=== PATIENT | male | born 1990 | race African-American/Black ===

== ENCOUNTER 2023-07-20 16:17 | Emergency (ER) | payer SELFPAY ==
[2023-07-20 16:37] VITALS: BP 124/80; PULSE 88; RESP 16; TEMP 36.6; O2SAT 100
--- NOTE | 2023-07-20 17:06 | ED.GENADULT ---
HPI - General Adult General Chief complaint: Psychiatric Symptoms Stated complaint: hallucinations Time Seen by Provider: 07/20/23 16:43 History of Present Illness HPI narrative: 33-year-old male with history of psychiatric disorder and developmental delay presented the emergency department for evaluation of increased hallucinations and decreased p.o. intake. Family states that the patient had been an inmate at [facility] for the last 3 years and was discharged on 06/23. Family states that the patient had been on multiple psychiatric medications but these were not continued when he was discharged. Family is unaware of what medications he had been on. Patient has been having poor sleep, hallucinations and decreased p.o. intake Review of Systems Review of Systems: All systems reviewed & are unremarkable except as noted in HPI and below PMFSH Social History Social History Substance use type: marijuana Exam Narrative: APPEARANCE: Well appearing, no pain, no distress, well-nourished. HEAD: normocephalic, atraumatic. EYES: PERRLA/EOMI, conjunctivae clear. NOSE: Normal no drainage EARS:TMS clear with good light reflex. THROAT: Pharynx clear, no exudate. NECK: Supple. No adenopathy, no masses. RESPIRATORY: Airway patent, respirations nonlabored. Clear to auscultation bilaterally, no rales, rhonchi, wheezing. CARDIOVASCULAR: Regular rate and rhythm without murmurs rubs or gallops. ABDOMINAL: Soft, nontender, nondistended, normal bowel sounds MUSCULOSKELETAL: Moves all extremities. Strength/ROM intact, No edema, No calf tenderness. NEURO: Alert. Cranial nerves II through XII intact. SKIN: Warm, dry. Normal Color Course Course Emergency Course: 33-year-old male with history of developmental delay and previous psychiatric issues presented the ED for evaluation of increased hallucinations and delusions after stopping his psychiatric medications. Patient was medically cleared and was evaluated by the crisis counselors. Crisis counselor felt that the patient needed to be placed as inpatient and both patient and mother were agreeable to voluntary inpatient placement. At time of signout placement is pending Reevaluation(s) Reevaluation #1: Patient is medically cleared to be evaluated by the crisis counselors. Patient is medically cleared for transportation and inpatient psychiatric placement as needed. Vital Signs Vital signs: Vital Signs Temperature 97.8 F 07/20/23 16:37 Pulse Rate 88 07/20/23 16:37 Respiratory Rate 16 07/20/23 16:37 Blood Pressure 124/80 07/20/23 16:37 Pulse Oximetry 100 07/20/23 16:37 Oxygen Delivery Room Air 07/20/23 16:37 Temperature 97.8 F 07/20/23 16:37 Pulse Rate 88 07/20/23 16:37 Respiratory Rate 16 07/20/23 16:37 Blood Pressure 124/80 07/20/23 16:37 Pulse Oximetry 100 07/20/23 16:37 Oxygen Delivery Room Air 07/20/23 16:37 Medical Decision Making Differential Diagnosis Differential Diagnosis: Medication noncompliance, hallucinations, delusions, Vital Signs Vital Signs: Vital Signs Temperature 97.8 F 07/20/23 16:37 Pulse Rate 88 07/20/23 16:37 Respiratory Rate 16 07/20/23 16:37 Blood Pressure 124/80 07/20/23 16:37 Pulse Oximetry 100 07/20/23 16:37 Oxygen Delivery Room Air 07/20/23 16:37 Temperature 97.8 F 07/20/23 16:37 Pulse Rate 88 07/20/23 16:37 Respiratory Rate 16 07/20/23 16:37 Blood Pressure 124/80 07/20/23 16:37 Pulse Oximetry 100 07/20/23 16:37 Oxygen Delivery Room Air 07/20/23 16:37 Lab Data Lab results reviewed: Yes I reviewed the patient's lab results. 07/20/23 17:26 07/20/23 17:26 Labs: Lab Results 07/20/23 07/20/23 Range/Units 17:26 17:30 WBC 4.7 (4.5-10.0) K/mm3 RBC 4.55 L (4.6-6.20) M/mm3 Hgb 14.6 (14.0-18.0) g/dL Hct 43.6 (42.0-52.0) % MCV 95.8 (80-100) fl MCH 32.1 (26-34) pg MCHC 33.5 (32-36) g/dl RDW 13
[2023-07-20 17:36] LABS: Hematocrit 43.6 % (42.0-52.0); Hemoglobin 14.6 g/dL (14.0-18.0); Mean Corpuscular HGB Conc 33.5 g/dl (32-36); Mean Corpuscular Hemoglobin 32.1 pg (26-34); Mean Corpuscular Volume 95.8 fl (80-100); Mean Platelet Volume 10.9 fl (7.4-10.4); Platelet Count Result 209 k/mm3 (150-375); Red Blood Count 4.55 M/mm3 (4.6-6.20); Red Cell Distribution Width 13.9 % (11.5-14.5); White Blood Count 4.7 K/mm3 (4.5-10.0)
[2023-07-20 18:03] LABS: Alanine Aminotransferase 20 U/L (6-50); Albumin Level 5.2 g/dL (3.5-5.1); Alkaline Phosphatase 75 U/L (38-126); Anion Gap 10 mmol/L (8-16); Aspartate Amino Transferase 27 U/L (17-59); Bilirubin,Total 1.4 mg/dL (0.2-1.3); Blood Urea Nitrogen 16 mg/dL (9-20); Calcium 9.8 mg/dL (8.4-10.2); Carbon Dioxide 25 mmol/L (22-30); Chloride 105 mmol/L (98-107); Estimated CRCL calculation 112 ml/min; Estimated Glomerular Filt Rate > 60; Glucose 104 mg/dL (65-110); Potassium 4.1 mmol/L (3.4-5.0); Sodium 140 mmol/L (137-145)
[2023-07-20 18:09] LABS: Lymphocytes Absolute Manual 1.83 K/mm3 (1.1-4.5); Monocytes Absolute Manual 0.18 K/mm3 (0.1-0.90); Monocytes Percent Manual 4 % (3-9); Neutrophils Percent Manual 57 % (46-73); Platelet Estimate Adequate (Adequate); Schistocytes None Seen (NORMAL); Total Cells Counted 100
[2023-07-20 18:11] LABS: Ethanol < 10 mg/dL (<10)
[2023-07-20 18:14] LABS: Appearance Urine Clear (Clear); Bacteria Urine None Seen /hpf; Bilirubin Urine 1+ (Negative); Blood Urine Negative (Negative); Color Urine Dark Yellow (Yellow); Glucose Urine UA Negative (Negative); Ketones Urine 2+ mg/dL (Negative); Leukocyte Esterase Ur Negative LEU/UL (Negative); Need Manual Microscopic Reviewed; Nitrate Urine Negative (Negative); Protein Urine 1+ mg/dL (Negative); RBC Urine 0-2 /hpf (0-2); Squamous Epithelial Cell Urine None seen /hpf (Few); WBC Urine 0-5 /hpf
[2023-07-20 18:15] LABS: Thyroid Stimulating Hormone 0.318 uIU/mL (0.465-4.680)
[2023-07-20 18:15] LABS: Add Urine Microscopic? YES
[2023-07-20 18:18] LABS: Influenza A QL RT-PCR Negative (Negative); Influenza B QL RT-PCR Negative (Negative); RSV RNA, RT-PCR Negative (Negative); SARS-CoV-2 RNA PCR Negative (Negative)
[2023-07-20 18:23] LABS: Amphetamine Screen Urine Negative (Negative); Barbiturate Screen Urine Negative (Negative); Benzodiazepines Screen Urine Negative (Negative); Cannabinoid Screen Urine Positive (Negative); Cocaine Screen Urine Negative (Negative); Methadone Screen Urine Negative (Negative); Opiate Screen Urine Negative (Negative); Phencyclidine Screen Urine Negative (Negative)
--- NOTE | 2023-07-20 18:35 | PC.NURSE ---
call placed to [facility]. railroad yard worker will respond within 2 hours
--- NOTE | 2023-07-20 22:44 | PC.NURSE ---
spoke with intake at [facility] accepting physician Esmer Henry.
== END 2023-07-20 23:57 ==
PROVIDERS: Emergency Provider Emergency Medicine
DX: R44.3 Hallucinations, unspecified (principal); Z20.822 Contact with and (suspected) exposure to COVID-19; R62.50 Unspecified lack of expected normal physiological development in childhood; F99 Mental disorder, not otherwise specified
CPT/HCPCS: 36415; 80053; 80307; 81001; 84443; 85025; 87637; 99285

== ENCOUNTER 2023-12-20 17:16 | Emergency (ER) | payer MEDICAID, SELFPAY ==
[2023-12-20 17:29] VITALS: BP 147/100; PULSE 75; RESP 20; TEMP 36.4; O2SAT 100
--- NOTE | 2023-12-20 17:38 | ECG_ITS ---
Measurements Intervals [place] Rate: 62 P: 57 [place]: 161 QRS: 42 QRSD: 82 T: 22 QT: 397 QTc: 405 Interpretive Statements SINUS RHYTHM NONSPECIFIC T-WAVE ABNORMALITY NO PREVIOUS ECG AVAILABLE FOR COMPARISON Electronically Signed On 12-21-2023 15:03:51 BLANCHING MACHINE OPERATOR by Darryl Parkinson M.D.
[2023-12-20 19:35] LABS: Basophils Absolute Auto 0.1 K/mm3 (0.0-0.1); Basophils Percent Auto 0.9 % (0.2-1.2); Eosinophils Absolute Auto 0.1 K/mm3 (0-0.3); Eosinophils Percent Auto 1.4 % (0-4.4); Hematocrit 45.9 % (42.0-52.0); Hemoglobin 15.2 g/dL (14.0-18.0); Immature Granulocyte Absolute 0.01 K/mm3 (0.00-0.031); Immature Granulocyte Percent A 0.2 % (0-0.5); Lymphocytes Absolute Auto 2.54 K/mm3 (0.9-3.2); Lymphocytes Percent Auto 45.5 % (18.3-44.2); Mean Corpuscular HGB Conc 33.1 g/dl (32-36); Mean Corpuscular Hemoglobin 31.9 pg (26-34); Mean Corpuscular Volume 96.2 fl (80-100); Mean Platelet Volume 10.4 fl (7.4-10.4); Monocytes Absolute Auto 0.4 K/mm3 (0.1-0.6); Monocytes Percent Auto 7.2 % (2.6-8.5); Neutrophils Absolute Auto 2.5 K/mm3 (1.3-6.7); Neutrophils Percent Auto 44.8 % (45.5-73.1); Platelet Count Result 208 k/mm3 (150-375); Red Blood Count 4.77 M/mm3 (4.6-6.20); Red Cell Distribution Width 13.9 % (11.5-14.5); White Blood Count 5.6 K/mm3 (4.5-10.0)
[2023-12-20 19:48] LABS: Ethanol < 10 mg/dL (<10)
[2023-12-20 19:52] LABS: Amphetamine Screen Urine Negative (Negative); Barbiturate Screen Urine Negative (Negative); Benzodiazepines Screen Urine Negative (Negative); Cannabinoid Screen Urine Positive (Negative); Cocaine Screen Urine Negative (Negative); Methadone Screen Urine Negative (Negative); Opiate Screen Urine Negative (Negative); Phencyclidine Screen Urine Negative (Negative)
[2023-12-20 19:59] LABS: Alanine Aminotransferase 17 U/L (6-50); Albumin Level 4.7 g/dL (3.5-5.1); Alkaline Phosphatase 84 U/L (38-126); Anion Gap 7 mmol/L (8-16); Aspartate Amino Transferase 26 U/L (17-59); Bilirubin,Total 1.3 mg/dL (0.2-1.3); Blood Urea Nitrogen 15 mg/dL (9-20); Calcium 10.1 mg/dL (8.4-10.2); Carbon Dioxide 29 mmol/L (22-30); Chloride 104 mmol/L (98-107); Estimated CRCL calculation 90 ml/min; Estimated Glomerular Filt Rate > 60; Glucose 122 mg/dL (65-110); Sodium 140 mmol/L (137-145)
--- NOTE | 2023-12-20 20:13 | PC.NURSE ---
Pt states he is having visual and auditory hallucinations. He reports hearing voices that are saying his name, denies that they are telling him to hurt himself or others. Pt also reports visual hallucinations of tombstones. Pt denies SI and HI. Pt calm and cooperative in room 15 with his mother at bedside. Care ongoing.
[2023-12-20 20:14] LABS: Influenza A QL RT-PCR Negative (Negative); Influenza B QL RT-PCR Negative (Negative); RSV RNA, RT-PCR Negative (Negative); SARS-CoV-2 RNA PCR Negative (Negative)
[2023-12-20 20:19] LABS: Add Urine Microscopic? YES; Appearance Urine Clear (Clear); Bacteria Urine None Seen /hpf; Bilirubin Urine Negative (Negative); Blood Urine Negative (Negative); Color Urine Dark Yellow (Yellow); Glucose Urine UA Negative (Negative); Ketones Urine 1+ mg/dL (Negative); Leukocyte Esterase Ur Negative LEU/UL (Negative); Mucus Urine Present /lpf; Need Manual Microscopic Reviewed; Nitrate Urine Negative (Negative); Non Pathogenic Casts 0-2; Protein Urine Trace mg/dL (Negative); RBC Urine 0-2 /hpf (0-2); Specific Grav Ur 1.033 (1.001-1.035); Squamous Epithelial Cell Urine None seen /hpf (Few); WBC Urine 0-5 /hpf
[2023-12-20 20:30] LABS: Thyroid Stimulating Hormone 0.583 uIU/mL (0.465-4.680)
--- NOTE | 2023-12-20 20:33 | ED.GENADULT ---
HPI - General Adult General Chief complaint: Psychiatric Symptoms Stated complaint: psychosis Time Seen by Provider: 12/20/23 20:09 History of Present Illness HPI narrative: patient is a 33-year-old gentleman who presents emergency department with chief complaint of psychosis. Patient reports that he has been having visual and auditory hallucinations the patient denies suicidal or homicidal ideation reports that the symptoms been ongoing for more than a week of the patient reports that he has not been taking his medications since his last hospitalization the patient reports that he feels paranoid at times of Review of Systems Review of Systems: A 10 system review of systems was completed on the patient and is negative except for what is stated in the HPI. Nursing and ancillary documentation was reviewed. [facility] Social History Social History Substance use type: marijuana Exam Narrative: GENERAL: Well-appearing, well-nourished, and in no acute distress. HEAD: Normocephalic, atraumatic. EYES: PERRLA and EOMI. ENT: Nares clear, no rhinorrhea or epistaxis. Mucous membranes moist. NECK: Supple. CHEST: Clear to auscultation. No respiratory distress. HEART: Regular rate and rhythm. No murmur heard. Normal peripheral pulses. ABDOMEN: Soft, nontender, nondistended, normal active bowel sounds. EXTREMITIES: Normal range of motion. No edema. SKIN: Warm, dry, no rash. NEURO: No focal deficits. Alert and oriented x3. PSYCH: Normal mood and affect. Course Vital Signs Vital signs: Vital Signs Temperature 36.4 C 12/20/23 17:29 Pulse Rate 75 12/20/23 17:29 Respiratory Rate 20 12/20/23 17:29 Blood Pressure 147/100 H 12/20/23 17:29 Pulse Oximetry 100 12/20/23 17:29 Oxygen Delivery Room Air 12/20/23 17:29 Temperature 36.3 C L 12/20/23 22:39 Pulse Rate 60 12/20/23 22:39 Respiratory Rate 16 12/20/23 22:39 Blood Pressure 132/87 12/20/23 22:39 Pulse Oximetry 99 12/20/23 22:39 Oxygen Delivery Room Air 12/20/23 17:[address] [facility] Narrative Medical decision making narrative: Differential diagnosis includes acute psychosis, substance use psychosis, noncompliance with medications laboratory studies were obtained on the patient in the labs showed no evidence of ETOH intoxication tox screen was just positive for cannabinoids COVID flu and RSV were negative patient was medically cleared for psychiatric evaluation referral transport and admission patient was seen by crisis and initial plan was for voluntary admission patient did not meet criteria for several inpatient psychiatric facilities the patient at this time and opted for a dose of additional anxiolytics this evening and to see his mental health provider in the morning. Vital Signs Vital Signs: Vital Signs Temperature 36.4 C 12/20/23 17:29 Pulse Rate 75 12/20/23 17:29 Respiratory Rate 20 12/20/23 17:29 Blood Pressure 147/100 H 12/20/23 17:29 Pulse Oximetry 100 12/20/23 17:29 Oxygen Delivery Room Air 12/20/23 17:29 Temperature 36.3 C L 12/20/23 22:39 Pulse Rate 60 12/20/23 22:39 Respiratory Rate 16 12/20/23 22:39 Blood Pressure 132/87 12/20/23 22:39 Pulse Oximetry 99 12/20/23 22:39 Oxygen Delivery Room Air 12/20/23 17:29 Lab Data 12/20/23 19:27 12/20/23 19:27 Labs: Lab Results 12/20/23 Range/Units 19:27 WBC 5.6 (4.5-10.0) K/mm3 RBC 4.77 (4.6-6.20) M/mm3 Hgb 15.2 (14.0-18.0) g/dL Hct 45.9 (42.0-52.0) % MCV 96.2 (80-100) fl MCH 31.9 (26-34) pg MCHC 33.1 (32-36) g/dl RDW 13.9 (11.5-14.5) % Plt Count 208 (150-375) k/mm3 MPV 10.4 (7.4-10.4) fl Immature Gran % (Auto) 0.2 (0-0.5) % Neut % (Auto) 44.8 L (45.5-73.1) % Lymph % (Auto) 45.5 H (18.3-44.2) % [place] % (Auto) 7.2 (2.6-8.5) % Eos % (Auto) 1.4 (0-4.4) % [place]rey
[2023-12-20 22:39] VITALS: BP 132/87; PULSE 60; RESP 16; TEMP 36.3; O2SAT 99
--- NOTE | 2023-12-21 00:14 | PC.NURSE ---
[facility] declined pt due to not meeting criteria. Pt and his mother stated they would be okay with outpatient treatment. This RN called crisis to see if this could be an option. conversion worker spoke on the phone with pt's mother and it was decided for the pt to leave the ED and follow up with his mental health provider who he has been set up with tomorrow. conversion worker and patient agreed to this plan.
[2023-12-21] MEDS: LORazepam INJ (*CRX) 2 MG/ML VIAL 1 MG IM (00:36)
[2023-12-21 00:40] VITALS: BP 129/76; PULSE 62; RESP 15; O2SAT 100
== END 2023-12-21 00:40 | disposition home or self-care (01) ==
PROVIDERS: Emergency Provider Emergency Medicine
DX: F29 Unspecified psychosis not due to a substance or known physiological condition (principal); Z20.822 Contact with and (suspected) exposure to COVID-19
CPT/HCPCS: 36415; 80053; 80307; 81001; 84443; 85025; 87637; 93005; 96372; 99284; J2060